=== PATIENT | male | born 1990 | race Caucasian/White ===

== ENCOUNTER 2017-09-22 18:56 | Emergency (ER) | payer OTHER ==
[2017-09-22] MEDS ORDERED: NS 1,000 ML IV ONE (19:16)
--- NOTE | 2017-09-22 19:16 | EDPHY ---
General Time Seen by Provider: 09/22/17 19:07 Narrative: CHIEF COMPLAINT: Loss of consciousness HISTORY OF PRESENT ILLNESS: Patient presents by EMS and is seen shortly after arrival. He reports loss of consciousness prior to arrival. He states that he was at his house and ambulated to the restroom, he had just finished urinating when he lost consciousness. His significant other was in the house and "heard a big thud. "She reports find him lying in the bathroom. He was "twitching," but she does not describe any seizure activity. He has no complaints at this time and says that he feels 100% back to normal. He states that he did feel lightheaded prior to passing out. At this time he has no headache, neck pain, chest, abdominal pain. No numbness, tingling or weakness. He has no chest pain that preceded this. He has no previous history of this. No history of seizure disorder. No other associated complaints or modifying factors. REVIEW OF SYSTEMS: Ten systems reviewed and are negative unless otherwise noted in the HPI PCP: None SPECIALISTS: None PAST MEDICAL HISTORY: Orthopedic injuries PAST SURGICAL HISTORY: Orthopedic surgery SOCIAL HISTORY: Nonsmoker. Occasional alcohol. Occasional marijuana use. Currently a college student residing in [place] FAMILY HISTORY: Noncontributory EXAMINATION General Appearance: Alert, no distress Head: normocephalic, atraumatic. No Davies sign. No raccoon eyes. No depression or deformity. Eyes: Pupils equal and round, no conjunctival pallor or injection ENT, Mouth: Mucous membranes moist Neck: Normal inspection, supple, non-tender Respiratory: Lungs are clear to auscultation Cardiovascular: Regular rate and rhythm. No murmur. Symmetric radial pulses. Gastrointestinal: Abdomen is soft and nontender Back: non-tender, no bony abnormalities Neurological: A&O, nonfocal, normal gait Skin: Warm and dry, no rash. No petechiae or purpura. No laceration or puncture. Extremities: Nontender, no pedal edema Psychiatric: Mood and affect normal DIFFERENTIAL DIAGNOSES: Including but not limited to vasovagal syncope, syncope, dehydration, seizure, cardiac conduction delay MDM: 7:10 p.m. Loss of consciousness with history exam that suggest vasovagal syncope. No seizure-like activity described. He is awake and alert. He is not postictal His vital signs are within normal limits at this time. I have ordered cafeteria monitor, EKG, laboratory studies and IV fluid. I have also ordered orthostatics. 7:45 p.m. Orthostatics are negative. EKG has been reviewed by myself and Dr. Bernard. Laboratory studies pending. 8:15 p.m. Laboratory studies are within normal limits including a negative troponin. He has received 1 L IV fluid. Vital signs remained stable. I have re-evaluated him he is feeling well. He has no chest pain, dizziness, nausea. I will aspirin him to be road test ambulated. 8:30 p.m. Patient has ambulated without any difficulty emergency department. He has stood up several times without any lightheadedness or dizziness. He has received IV fluid and feels 100% back to his normal self. He would like to go home at this time. I do feel this is stable. Given that he has no primary care physician, will provide him with him on-call. He should follow up with them for further workup. He has strict ED precautions to return here for return of syncope, chest pain, shortness of breath, dizziness, headache or lightheadedness. He is comfortable this plan and discharged in stable condition EKG interpretation: Dr. Bernard Normal sinus rhythm. No conduction delay SUPERVISION: Patient was independently examined, but I discussed the case with my primary supervising physician Dr. Bernard. - Objective Vital Signs: Initial Vital Signs Temperature (C) 97.7 F 09/22/17 19:06 Heart Rate 69 09/22/17 19:06 Respiratory Rate 18 09/22/17 19:06 Blood Pressure 127/67 H 09/22/17 19:06 O2 Sat (%) 98 09/22/17 19:06 O2 Delivery Mode Room Air Allergies/Adverse Reactions: No Known Allergies Allergy (Unverified 04/12/12 12:42) Home Medications: Medication Instructions Recorded Adult One Daily Multivit Tab 09/22/17 Laboratory Results: Laboratory Results 09/22/17 19:25 09/22/17 19:25 09/22/17 09/22/17 09/22/17 19:26 19:25 19:25 WBC 7.90 10^3/uL 10^3/uL (3.80-9.50) RBC 4.96 10^6/uL 10^6/uL (4.40-6.38) Hgb 14.3 g/dL g/dL (13.7-17.5) Hct 41.0 % % (40.0-51.0) MCV 82.7 fL fL (81.5-99.8) MCH 28.8 pg pg (27.9-34.1) MCHC 34.9 g/dL g/dL (32.4-36.7) RDW 12.4 % % (11.5-15.2) Plt Count 242 10^3/uL 10^3/uL (150-400) MPV 11.2 fL fL (8.7-11.7) Neut % (Auto) 53.9 % % (39.3-74.2) Lymph % (Auto) 35.3 % % (15.0-45.0) [place] % (Auto) 6.8 % % (4.5-13.0) Eos % (Auto) 2.5 % % (0.6-7.6) Baso % (Auto) 1.0 % % (0.3-1.7) Nucleat RBC Rel Count 0.0 % % (0.0-0.2) Absolute Neuts (auto) 4.25 10^3/uL 10^3/uL (1.70-6.50) Absolute Lymphs (auto) 2.79 10^3/uL 10^3/uL (1.00-3.00) Absolute Monos (auto) 0.54 10^3/uL 10^3/uL (0.30-0.80) Absolute Eos (auto) 0.20 10^3/uL 10^3/uL (0.03-0.40) Absolute Basos (auto) 0.08 10^3/uL 10^3/uL (0.02-0.10) Absolute Nucleated RBC 0.00 10^3/uL 10^3/uL (0-0.01) Immature Gran % 0.5 % % (0.0-1.1) Immature Gran # 0.04 10^3/uL 10^3/uL (0.00-0.10) Sodium 142 mEq/L mEq/L (135-145) Potassium 3.5 mEq/L mEq/L (3.3-5.0) Chloride 103 mEq/L mEq/L (97-110) Carbon Dioxide 25 mEq/l mEq/l (22-31) Anion Gap 14 mEq/L mEq/L (8-16) BUN 12 mg/dL mg/dL (7-23) Creatinine 0.9 mg/dL mg/dL (0.7-1.3) Estimated GFR > 60 Glucose 93 mg/dL mg/dL (70-100) Calcium 9.6 mg/dL mg/dL (8.5-10.4) POC Troponin I 0.00 ng/mL ng/mL (0.00-0.08) Medications Given: Discontinued Medications Sodium Chloride (Ns) 1,000 mls @ 0 mls/hr IV EDNOW ONE; Wide Open PRN Reason: Protocol Stop: 09/22/17 19:17 Last Admin: 09/22/17 19:29 Dose: 1,000 mls Point of Care Test Results: Chemistry 09/22/17 19:26 POC Troponin I 0.00 ng/mL ng/mL (0.00-0.08) Departure - Departure Disposition: Home, Routine, Self-Care Clinical Impression: Vasovagal syncope Condition: Good Instructions: Syncope (ED) Additional Instructions: 1. Contact outpatient primary care physician as provided for you to establish with 2. Increase her fluid intake for the next 48 hr 3. Return here for any return of loss of conscious, chest pain, seizure activity , headache fever 4. Do not drive or operate any machinery for the next 48-72 hours Referrals: Umberto Lainez MD [Medical Doctor] - As per Instructions
--- NOTE | 2017-09-22 19:22 | CPEKG ---
Heart Rate: 52 RR Interval: 1154 P-R Interval: 148 QRSD Interval: 96 QT Interval: 428 QTC Interval: 398 P [place]: 50 QRS [place]: 86 T Wave [place]: 38 EKG Severity - NORMAL ECG - EKG Impression: SINUS RHYTHM Electronically Signed By: Zeyad Burgess 22-Sep-2017 20:51:03
[2017-09-22 19:41] LABS: PLATELET COUNT 242 10^3/uL (150-400)
[2017-09-23 05:33] VITALS: BP 124/71
== END 2017-09-22 20:44 | disposition home or self-care (01) ==
LOC: EDUNIT#
DX: R55 Syncope and collapse (principal); E86.9 Volume depletion, unspecified
CPT/HCPCS: 84484-PO

== ENCOUNTER 2018-09-06 19:54 | Emergency (ER) | payer OTHER | END 2018-09-06 20:50 | disposition home or self-care (01) ==

== ENCOUNTER → 2018-09-06 | Outpatient (CLI) | payer OTHER | LOC: FIMAGING 11:29 ==

== ENCOUNTER → 2018-09-09 | Outpatient (CLI) | payer OTHER | LOC: FIMAGING 13:20 ==